=== PATIENT | female | born 1975 | race Caucasian/White ===

== ENCOUNTER 2021-07-08 10:37 | Emergency (ER) | payer BC, SELFPAY ==
--- NOTE | ~2021-07-08 | XR_ITS ---
XR hand LT min 3V DATE: 07/08/2021 10:53 INDICATION: History of prior injury with lacerations to second and third digits TECHNIQUE: 3 views COMPARISON: None FINDINGS: Examination is limited with some superimposition of the digits, particularly the second and third digits on the lateral view. No radiopaque soft tissue foreign body or fracture or dislocation is evident. IMPRESSION: Limited examination; no radiopaque foreign body or fracture or dislocation Reviewed, dictated and finalized at location A. IMPRESSION: Limited examination; no radiopaque foreign body or fracture or disl ocation
[2021-07-08 10:42] VITALS: BP 109/71; PULSE 120; RESP 16; TEMP 36.3; O2SAT 99
--- NOTE | 2021-07-08 11:33 | ED.UPPEXIN ---
HPI - Extremity Injury (Upper) General Chief Complaint: Extremity Injury, Upper Stated Complaint: finger lac Time Seen by Provider: 07/08/21 11:30 History of Present Illness HPI narrative: pt cut left index and long finger injury ruth chang no other issues not sure last tdap will update just tip of finger long finger but multiple cuts to lateral aspect of left finger Related Data Allergies Allergy/AdvReac Type Severity Reaction Status Date / Time No Known Allergies Allergy Unverified 02/28/12 17:10 Review of Systems Review of Systems: CONSTITUTIONAL: Denies fever, chills, or sweats. EYES: Denies visual changes, redness, or discharge. ENT: Denies rhinorrhea, congestion, sore throat, or otalgia. CARDIOVASCULAR: Denies chest pain, palpitations, or edema. RESPIRATORY: Denies cough or dyspnea. GASTROINTESTINAL: Denies abdominal pain, nausea, vomiting, or diarrhea. GENITOURINARY: Denies dysuria or hematuria. SKIN: Denies rash or itching. has lacs to left index/long finger MUSCULOSKELETAL: Denies back pain, joint pain, or myalgia. NEUROLOGIC: Denies headache, numbness, or weakness. PSYCHIATRIC: Denies anxiety or depression. Exam Const: General: cooperative and alert Nutritional Appearance: average body habitus Orientation/consciousness: oriented to person, oriented to place and oriented to time Limitations: no limitations HENMT: Head: normal to inspection Face and sinus: normal facial exam Eyes: General: appearance normal, both eyes and all related structures Conjunctivae: conjunctivae normal Pupils: Equal, round and reactive pupils present EOM: EOMs intact bilaterally Neck: Neck: normal visual inspection Resp: Effort & Inspection: normal respiratory effort and able to speak in complete sentences Cardio: Peripheral pulses: Peripheral pulses 2+ throughout Skin: Wounds: wounds noted (left index lacerations lateral aspect finger at dip, pip with full rom) Neuro: General: oriented to person, oriented to place and oriented to time Cranial nerves: Yes CN's II-XII intact bilaterally Cognition (Neuro): normal cognition Speech: normal speech Gait exam (Neuro): Normal gait present Motor exam (neuro): 5/5 motor strength present throughout Sensory Exam: normal sensation Extrem: Right upper extremity: normal to inspection, full ROM and normal capillary refill Left upper extremity: hand laceration Other: tip index right finger just superfical c shaped lac, left index multple lacs lateral finger pip to distal but full rom Psych: Appearance: grossly normal and well kempt Mental Status: mental status grossly normal Course Course Emergency Course: pt once numbed and pain controlled has full rom digits no tendon deficits on exam Vital Signs Vital signs: Vital Signs Temperature 36.3 C L 07/08/21 10:42 Pulse Rate 120 H 07/08/21 10:42 Respiratory Rate 16 07/08/21 10:42 Blood Pressure 109/71 07/08/21 10:42 Pulse Oximetry 99 07/08/21 10:42 Temperature 36.3 C L 07/08/21 10:42 Pulse Rate 120 H 07/08/21 10:42 Respiratory Rate 16 07/08/21 10:42 Blood Pressure 109/71 07/08/21 10:42 Pulse Oximetry 99 07/08/21 10:42 Procedures Laceration Laceration 1: Date: 07/08/21 Time: 12:12 Site: hand (index finger) Side (If applicable): left Size (cm): 4 Description: stellate, flap and irregular Depth: simple, single layer Local Anesthetic: lidocaine 1% (digital block left index finger lateral nerve only) Amount of anesthesia used (mL): 4 Pre-repair: irrigated extensively ====== Skin Level ====== Skin layer closed with: prolene Size (cm): 4-0 Number of sutures: 7 Technique: simple, interrupted ====== Subcutaneous Layer ====== ====== Muscle Layer ====== ====== Tendon Layer ====== Dressing: nurse applied nonstick then tube gauze and I explained to patient so many small skin tiny cuts/fla
[2021-07-08] MEDS: LIDOCAINE HCL 1% LOCAL INJ 20 ML VIAL 10 ML INFILTRATE (11:52)
[2021-07-08] MEDS: TETANUS,DIPHTHERIA,AC PERTUSSIS ADULT (0.5 ML) BOOSTRIX IM (12:39)
--- NOTE | 2021-07-08 12:52 | PC.NURSE ---
Wounds dressed with Telfa and tube gauze. Finger splint also applied.
== END 2021-07-08 12:54 | disposition home or self-care (01) ==
PROVIDERS: Emergency Provider Emergency Medicine
DX: S61.211A Laceration without foreign body of left index finger without damage to nail, initial encounter (principal); S61.213A Laceration without foreign body of left middle finger without damage to nail, initial encounter; Z23 Encounter for immunization; W29.3XXA Contact with powered garden and outdoor hand tools and machinery, initial encounter
CPT/HCPCS: 12002; 73130; 90471; 90715; 99283

== ENCOUNTER 2024-12-19 13:06 | Emergency (ER) | payer OTHER, SELFPAY ==
--- OUTSIDE RECORDS SUMMARY | 2024-09-09 05:30 | XMS_ITS | Continuity of Care Document ---
Author Organization [facility] Address [address] [place] [address] Phone Care Team Providers Care Elementary Science Teacher Name Role Phone Stephen Castillo PT Unavailable Unavailable Procedures Procedure Date Therapeutic Activities Therapeutic Exercise Neuromuscular Re-Ed Hot or Cold Pack Progress Note Therapeutic Activities Neuromuscular Re-Ed Therapeutic Exercise Hot or Cold Pack Therapeutic Activities Neuromuscular Re-Ed Therapeutic Exercise Hot or Cold Pack Therapeutic Activities Neuromuscular Re-Ed Therapeutic Exercise Hot or Cold Pack Therapeutic Activities Neuromuscular Re-Ed Therapeutic Exercise Hot or Cold Pack Therapeutic Activities Neuromuscular Re-Ed Therapeutic Exercise Hot or Cold Pack Therapeutic Activities Therapeutic Exercise Hot or Cold Pack Canalith Repositioning Procedure 2024 PT Evaluation Moderate Complexity Therapeutic Activities Neuromuscular Re-Ed Manual Therapy Canalith Repositioning Procedure 2024 Advance Directives Directive Yes / No Effective Date File Name No Information Encounters Encounter Description Practice Location Reason(s) For Visit Diagnoses Date Provider Providers Copied on Encounter [facility], [address], [place], [place], [id number], [place] tel:[phone] [place] No Information 5 Jonathan Stephen. . Referring Provider: [address], [place], [address]. tel:[phone] [facility] [address], [place], [place], [id number], [place] tel:[phone] [place] No Information 5 Jonathan Stephen. . Referring Provider: [address], [place], [address]. tel:[phone] [facility] [address], [place], [place], [id number], tel:[phone] [place] No Information 0 5 Jonathan Stephen. . Referring Provider: [address], [place], [address]. tel:[phone] [place] [address], [place], [place], [id number], [place] tel:[phone] [place] No Information 5 Jonathan Stephen. . Referring Provider: [address], [place], [address]. tel:[phone] [facility] [address], [place], [place], [id number], [place] tel:[phone] [place] No Information 3- 5 Jonathan Stephen. . Referring Provider: [address], [place], [address]. tel:[phone] [facility] [address], [place], [place], [id number], [place] tel:[phone] [place] No Information 5 Jonathan Butleron. . Referring Provider: [address] [facility] [address], [place], [address]. tel:[phone] [facility], [facility] [address], [place], [place], [id number], tel:[phone] [place] No Information 5 Jonathan Butleron. . Referring Provider: [address] [facility] [address], [place], [address]. tel:[phone] [place] [address] [facility] [address], [place], [place], [id number], tel:[phone] [place] No Information 5 Jonathan Butleron. . Referring Provider: [address] [facility] [address], [place], [address]. tel:[phone] Family History Family Member Type Diagnosis Age At Onset No Information Payers Payer name Insurance type Covered constitution party ID Authoriza tirohit(s) [facility] [id number] Social History Type Description Quantity Date Captured Comments Sex Female Smoking Status No Information Chief Complaint And Reason For Visit No Information Reason For Referral Reason For Referral No Information History Of Present Illness Encounter Date Complaint History Of Prese nt Illness No Information Functional Status Date Functional Assessmen t No Information Instructions Date Instruction Additional Infor mation No Information Assessments Type Assessment Date No Information Patient Care Teams Name Effective Dates (start - stop) Status Members No Information
--- OUTSIDE RECORDS SUMMARY | 2024-12-19 13:09 | XMS_ITS | Encounter Summary ---
Author Organization [facility] Address [address] [place] [address] Care Team Providers Care Nursery School Teacher Name Role Phone Gina Lyon MD Unavailable [phone] Li Pa MD Primary Care Provi enedina Encounter Details Date Type Department Care Team (Late st Contact Info) Description 11/25/2024 Results Follow-Up [facility] [address] [place] [address] [place] [id number] Selene Parker MD PhD [address] [place] [id number] MRI Breast Bilateral W WO Contrast Social History Tobacco Use Types Packs/Day Years Used Date Smoking Tobacco: Never Smokeless Tobacco: Never Alcohol Use Standard Drinks/Week Comments Yes 0 (1 standard drink = 0.6 oz pur e alcohol) Maybe 2 monthly Humiliation, Afraid, Rape, and Kick questionnair e Answer Date Recorded Within the last year, have y ou been afraid of your partner or ex-partner? No 12/02/2019 Within the last year, have y ou been humiliated or emotionally abused in other ways by your partner or ex-partner? No Within the last year, have y ou been kicked, hit, slapped, or otherwise physically hurt by your partner or ex-partner? No 12/02/2019 Within the last year, have y ou been raped or forced to have any kind of sexual activity by your partner or ex-partner? No 12/02/2019 Social Connection and Isolation Panel Answer Date Recorded Frequency of Communication with Friends and Fami ly Not on file 01/25/2020 Frequency of Social Gatherings with Friends and Family Not on file 01/25/2020 Attends Rastafari Services Not on file 01/24 Active Member of Clubs or Organizations Not on f ile 01/25/2020 Attends Club or Organization Meetings Not on mary kate e 01/25/2020 Are you , , di vorced, , never , or living with a partner? 01/25/2020 AUDIT-C Answer Date Recorded Q1: How often do you have a drink containing alc ohol? Monthly or less 08/10/2024 Q2: How many drinks containi ng alcohol do you have on a typical day when you are drinking? 1 or 2 08/10/2024 Q3: How often do you have si x or more drinks on one occasion? Never 08/10/2024 PHQ-2 Answer Date Recorded PHQ-2 Total Score (If total score is 3 or more points, staff should administer the PHQ-9) 3 08/10/2024 PHQ-9 Answer Date Recorded PHQ-9 Total Score 10 08/10/2024 Personal Safety Answer Date Recorded Have you ever been in or are you currently in a harmful physical or emotional relationship or is someone making you feel afraid or unsafe? 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 [place] [address] Consulting Physician Obstetrics and Gynecology 04/19/20 documented as of this encounter
[2024-12-19 13:17] VITALS: BP 106/64; PULSE 63; RESP 18; TEMP 36.6; O2SAT 100
[2024-12-19 13:32] LABS: EDUAAPPEAR Cloudy; EDUABILI Negative (Negative); EDUABLOOD 3+ (Negative); EDUACOLOR1 Dark; EDUAGLUCOSE Negative (Negative); EDUAKETONE Negative (Negative); EDUALEUKO 3+ (Negative); EDUANITRATE Positive (Negative); EDUAPH 6.0; EDUAPROTEIN 2+ (Negative); EDUASPGRAVITY 1.020; EDUAUROBILI 0.2
--- NOTE | 2024-12-19 13:44 | ED_ITS ---
HPI - Female Genitourinary General Chief complaint: Urogenital-Female Stated complaint: UTI patient presents to the [facility] with his days of burning with urination, urinary frequency, urinary urgency but began over the last couple days. Patient has been using [id number] AZO with some relief of symptoms. No recent history of frequent UTIs. Denies fever, chills, body aches, blood in urine, lower back pain, flank pain, or abdominal pain. Related Data Home Medications ?Medication ?Instructions ?Recorded ?Confirmed ?Last Taken ?Type bupropion HCl 300 mg 24 hr tablet, mg PO 12/19/24 Unk nown History extended release buspirone 5 mg tablet mg 12/19/24 Unknown History meclizine 25 mg tablet mg 12/19/24 Unknown History Allergies Allergy/AdvReac Type Severity Reaction Status Date / Time No Known Allergies Allergy Verified 12/19/24 13:27 Review of Systems Constitutional: Constitutional: Reports as per HPI, Denies chills and Denies fatigue Eyes: Eyes: Reports no additional eye complaints Cardiovascular: Cardiovascular: Reports no additional cardiovascular complaints Respiratory: Respiratory: Reports no additional respiratory complaints Gastrointestinal: Gastrointestinal: Reports as per HPI, Denies abdominal pain, Denies diarrhea, Denies nausea and Denies vomiting Genitourinary: Genitourinary: Reports as per HPI, Denies hematuria, Reports nocturia, Reports dysuria, Denies flank pain and Denies urinary incontinence Musculoskeletal: Musculoskeletal: Reports as per HPI Integumentary/Breasts: Skin/Breast: Reports system reviewed and no additional complaints, except as docu Neurologic: Reports system reviewed and no additional complaints, except as documented Psychiatric: Psychiatric: Reports no additional psychiatric complaints Endocrine: Endocrine: Reports no additional endocrine complaints Hematologic/Lymphatic: Hematologic/Lymphatic: Reports no additional hematologic/lymphatic complaints Allergic/Immunologic: Allergic/Immunologic: Reports no additional allergic/immunologic complaints Exam Const: General: healthy appearing and no acute distress Nutritional Appearance: well nourished Orientation/consciousness: patient oriented x3 Limitations: no limitations Resp: Effort & Inspection: normal respiratory effort Auscultation: clear to auscultation bilaterally Cardio: Rate: regular rate Rhythm: regular rhythm GI: GI Palp: Yes Soft to palpation, No Tenderness to palpation present (GI), No Guarding due to palpation present (GI), No Rigid due to palpation, No Hernia present and No Rebound tenderness present Auscultation: normal bowel sounds : General: Yes bladder normal to palpation and Yes no CVA tenderness Back/Spine/Pelvis: Back: no CVA tenderness Skin: General skin exam: normal color Rashes: no rashes Wounds: no wounds Neuro: General: patient oriented x3 and moves all extremities Speech: normal speech Gait exam (Neuro): Normal gait present Psych: Appearance: grossly normal Mental Status: mental status grossly normal Affect: normal affect Attitude: cooperative Course Course Level of Care: Express Care Visit Vital Signs Vital signs: Vital Signs Temperature 97.9 F 12/19/24 13:17 Pulse Rate 63 12/19/24 13:17 Respiratory Rate 18 12/19/24 13:17 Blood Pressure 106/64 12/19/24 13:17 Pulse Oximetry 100 12/19/24 13:17 Oxygen Delivery Room Air 12/19/24 13:17 Temperature 97.9 F 12/19/24 13:17 Pulse Rate 63 12/19/24 13:17 Respiratory Rate 18 12/19/24 13:17 Blood Pressure 106/64 12/19/24 13:17 Pulse Oximetry 100 12/19/24 13:17 Oxygen Delivery Room Air 12/19/24 13:17 MDM - Female Genitourinary MDM Narrative Medical decision making narrative: UA positive for UTI. No signs of pyelonephritis. The patient was evaluated by myself in the express care. History is obtained from patient who is an independent historian and physical exam was performed. Available medical records were reviewed at this time. Exam findings show no acute concerns or changes; patient is non-toxic appearing and is in no distress. Patient is appropriate for outpatient treatment and follow-up. I have evaluated and discussed social determinants of health with the patient that could potentially impact subsequent diagnosis and treatment plans. Differential diagnosis and treatment plan were discussed with the patient. Patient agrees with discussion and after shared medical decision making agrees with plan of care. All questions were answered to the patient's satisfaction. Differential Diagnosis Differential diagnosis: Likely urinary tract infection, cervicitis, vaginitis and cystitis Medical Records Attestation: I reviewed the patient's medical records. Lab Data Attestation: I reviewed the patient's lab results. Labs: Lab Results 12/19/24 Range/Units 13:30 POC Urine Color Dark POC Urine Clarity Cloudy POC Urine pH 6.0 POC Ur Specif [place] 1.020 POC Urine Protein 2+ (Negative) POC Ur Glucose (UA) Negative (Negative) POC Urine Ketones Negative (Negative) POC Urine Blood 3+ (Negative) POC Urine Nitrite Positive (Negative) POC Urine Bilirubin Negative (Negative) POC Urine Urobilinogen 0.2 POC U Leukocyte Esteras 3+ (Negative) Discharge Plan Discharge Clinical Impression: Cystitis Patient Disposition: Home Condition: Stable Instructions: Antibiotic Form, Urinary Tract Infection in Women (ED) Additional Instructions: We will send a urine culture off to the lab; if the culture identifies an organism that the prescribed antibiotic will not treat, you will receive a phone call from an urgent care staff member and an appropriate antibiotic will be prescribed. -Your symptoms should begin to improve within a day of starting antibiotics. But you should finish all the antibiotic pills you get. Otherwise your infection mi ght come back. -Also recommend: drink more fluid. It might help flush out germs, and it does no harm -Tylenol/ibuprofen as needed for pain -Follow-up with your primary care provider for urine recheck OR if your symptoms persist, change or worsen significantly before you can contact your personal physician then please, without delay, go to the emergency department for further evaluation. Patient Language: Nepalese Prescriptions: New nitrofurantoin monohyd/m-cryst [Macrobid] 100 mg capsule 100 mg PO Q12H 5 Days Qty: 10 0RF Rx Instructions: must administer with a meal/food No Action buspirone 5 mg tablet meclizine 25 mg tablet bupropion HCl 300 mg tablet extended release 24 hr PO tramadol 50 mg tablet 50 mg PO Q8H PRN (Reason: pain) Qty: 10 0RF Follow-up/Referrals: UNKNOWN,DOCTOR [Primary Care Provider] Time of Disposition: 13:46
== END 2024-12-19 13:48 | disposition home or self-care (01) ==
PROVIDERS: Emergency Provider Nurse Practitioner Family
DX: N30.90 Cystitis, unspecified without hematuria (principal)
CPT/HCPCS: 81003; 87086; 87186; 99213; G0463